=== PATIENT | male | born 1990 | race Caucasian/White ===

== ENCOUNTER 2022-01-19 16:34 | Emergency (ER) | payer OTHER ==
[~2022-01-19] VITALS: Ht 175.3 cm; Wt 79.4 kg
--- NOTE | ~2022-01-19 | EKG ---
[address] [address] ELECTROCARDIOGRAM REPORT Name: DORIAN CESAR Room #: REG LUIS Mace#: [id number] Admission: 01/19/22 Attend Phys: Discharge: Date of : 89 Report #: [id number] [facility] ED Test Date: 2022-01-19 Test Time: 16:36:41 Pat Name: DORIAN CESAR Department: Room: Gender: M Development Advisor: TERE : 1990 Requested By: Yong Davenport Order Number: [id number] MD: Measurements Intervals [place] Rate: 82 P: 63 TN: 144 QRS: 14 QRSD: 97 T: 47 QT: 347 QTc: 406 Interpretive Statements Sinus rhythm Anteroseptal infarct, old No previous ECG available for comparison [email or web address] By: 163 163 Epiphany EpiphanyMD /EPI
[2022-01-19 16:59] LABS: AMP/METHAMP Negative (Negative); BARBITURATES Negative (Negative); BENZODIAZEPINES Negative (Negative); COCAINE Negative (Negative); METHADONE Negative (Negative); OPIATES Negative (Negative); PCP Negative (Negative)
[2022-01-19 17:14] LABS: HEMATOCRIT 53.4 % (42.0-52.0); HEMOGLOBIN 16.2 gm/dL (14.0-18.0); MCH 29.7 pg (26.0-34.0); MCHC 30.3 g/dL (28.0-37.0); MCV 97.9 fL (80.0-100.0); PLATELET COUNT 276 thou/uL (150-400); RBC 5.45 mil/uL (4.50-6.00); WBC 23.4 thou/uL (4.0-11.0)
[2022-01-19 17:15] LABS: CALCIUM 10.3 mg/dL (8.5-10.1); CREATININE 1.5 mg/dL (0.7-1.3)
[2022-01-19 17:22] LABS: POTASSIUM 4.5 mmol/L (3.5-5.1)
[2022-01-19 17:37] LABS: URINE BILIRUBIN NEGATIVE (Negative); URINE BLOOD 2+ (Negative); URINE CLARITY CLEAR; URINE GLUCOSE-RANDOM* NEGATIVE (Negative); URINE KETONES NEGATIVE (Negative); URINE LEUKOCYTES-REFLEX NEGATIVE (Negative); URINE NITRITE-REFLEX NEGATIVE (Negative); URINE PROTEIN (DIPSTICK) 2+ (Negative); URINE SPECIFIC GRAVITY >= 1.030 (1.005-1.035); URINE UROBILINOGEN 0.2 E.U./dl (0.2-1.0)
[2022-01-19 17:39] LABS: URINE COLOR STRAW
[2022-01-19 17:52] LABS: SQUAMOUS 0-3 Few /LPF (0-3)
[2022-01-19 17:53] LABS: TRANSITIONAL EPITHEL CELL 0-3 Few /LPF (None Seen); URINE RBC 3-10 Few /HPF (NONE SEEN); URINE WBC-REFLEX 0-5 Rare /HPF (0-5)
[2022-01-19 17:54] LABS: BACTERIA-REFLEX 1-9 Few /HPF (None Seen); CASTS None Seen /LPF (None Seen); MUCUS None Seen strn/LPF (None Seen)
[2022-01-19 17:55] LABS: AMORPHOUS URATES Moderate /LPF (None Seen)
[2022-01-19 18:06] LABS: ABSOLUTE NEUTROPHILS 12.4 thou/uL (1.4-8.2)
[2022-01-19 18:07] LABS: ANISOCYTOSIS 1+; POLYCHROMASIA 1+
[2022-01-19 20:54] LABS: HEMATOCRIT 41.1 % (42.0-52.0); MCH 29.3 pg (26.0-34.0); MCHC 32.6 g/dL (28.0-37.0); PLATELET COUNT 202 thou/uL (150-400); RBC 4.57 mil/uL (4.50-6.00); WBC 28.8 thou/uL (4.0-11.0)
[2022-01-19 20:57] LABS: HEMOGLOBIN 13.4 gm/dL (14.0-18.0)
[2022-01-19 21:22] LABS: ABSOLUTE NEUTROPHILS 25.3 thou/uL (1.4-8.2)
[2022-01-19 21:28] VITALS: BP 121/75
== END 2022-01-19 21:32 | disposition home or self-care (01) ==
LOC: ER 16:34 → EDBD 16:34 → ER 21:32
PROVIDERS: Emergency Medicine
DX: R56.9 Unspecified convulsions (principal)